=== PATIENT | male | born 1995 | race Caucasian/White ===

== ENCOUNTER 2016-08-12 16:52 | Emergency (ER) | payer OTHER ==
[~2016-08-12] VITALS: Ht 165.1 cm; Wt 96.1 kg
[2016-08-12 16:56] VITALS: BP 144/90
[2016-08-12] MEDS ORDERED: LIDOCAINE 1%, 20ML SQ ONE (17:30)
[2016-08-12] MEDS ORDERED: LIDOCAINE 1%, 20ML ONE (17:33)
== END 2016-08-12 19:29 | disposition home or self-care (01) ==
LOC: ED 19:22
DX: S61.211A Laceration without foreign body of left index finger without damage to nail, initial encounter (principal); W45.8XXA Other foreign body or object entering through skin, initial encounter; Y93.89 Activity, other specified; Y92.009 Unspecified place in unspecified non-institutional (private) residence as the place of occurrence of the external cause; Y99.9 Unspecified external cause status
CPT/HCPCS: 12001